=== PATIENT | female | born 1990 | race Caucasian/White ===

== ENCOUNTER 2018-04-26 01:12 | Emergency (ER) | payer MEDICAID ==
[~2018-04-26] VITALS: Ht 157.5 cm; Wt 64.9 kg
[~2018-04-26 01:12] MED LIST: HYDR-1421
[2018-04-26 02:32] LABS: Basophils # (auto) 0 uL; Basophils % (auto) 0.8 % (0.0-2.0); Eosinophils # (auto) 0.1 uL; Hematocrit 30.4 % (36.0-46.0); Hemoglobin 9.5 g/dL (12.2-16.2); Monocytes # (auto) 0.4 uL; White Blood Cell 5.3 10^3/uL (4.4-10.8)
[2018-04-26 02:34] LABS: Eosinophils % (auto) 1.5 % (0.0-7.0); Lymphocytes % (auto) 37.7 % (10.0-50.0); Mean Corpuscular Hemoglobin 21.7 pg (28.0-32.0); Mean Corpuscular Hgb Conc. 31.2 g/dL (32.0-36.0); Mean Corpuscular Volume 69.5 fL (80.0-100.0); Monocytes % (auto) 7.6 % (0.0-12.0); Neutrophils # (auto) 2.8 uL; Neutrophils % (auto) 52.4 % (37.0-80.0); Platelet Count (auto) 282 10^3/uL (140-450); Red Blood Cells 4.37 10^6/uL (4.0-5.20); Red Cell Distribution Width 18.1 % (11.8-14.3)
[2018-04-26 02:39] LABS: Albumin 3.4 g/dL (3.4-5.0); BUN/Creatinine Ratio 16.9; Calcium 8.3 mg/dL (8.5-10.1); Potassium 3.9 mmol/L (3.5-5.1)
[2018-04-26 02:41] LABS: Alcohol, Urine < 3.0 mg/dL (0-5); Amphetamine Screen, Urine POSITIVE (NEGATIVE); Barbiturate Scree,Urine NEGATIVE (NEGATIVE); Benzodiazephine Screen, Urine NEGATIVE (NEGATIVE); Cannabinoid Screen, Urine NEGATIVE (NEGATIVE); Cocaine Screen, Urine NEGATIVE (NEGATIVE); Opiate Scree,Urine POSITIVE (NEGATIVE); Phencyclidine Screen, Urine NEGATIVE (NEGATIVE)
[2018-04-26 02:42] LABS: Urine Bacteria MANY /hpf (None Seen); Urine Blood Negative /uL (Negative); Urine Mucus FEW (None Seen); Urine Specific Gravity 1.022 (1.001-1.035); Urine WBC 62 /hpf (0 - 5)
[2018-04-26 02:42] LABS: Bilirubin, Total 0.4 mg/dL (0.2-1.0); Total Protein 8.8 g/dL (6.4-8.2)
[2018-04-26] MEDS ORDERED: cefTRIAXone 1GM/50ML D5W 50 ML IV ONE ×2 (03:15→04:12)
[2018-04-26 05:25] VITALS: BP 98/58
[2018-04-27 04:06] LABS: RPR Non Reactive (Non Reactive)
== END 2018-04-26 06:36 | disposition home or self-care (01) ==
LOC: ER 01:17
DX: L03.116 Cellulitis of left lower limb (principal); L03.115 Cellulitis of right lower limb; L02.416 Cutaneous abscess of left lower limb; F12.10 Cannabis abuse, uncomplicated; F15.10 Other stimulant abuse, uncomplicated; F17.210 Nicotine dependence, cigarettes, uncomplicated; Z88.0 Allergy status to penicillin
CPT/HCPCS: 36415; 80053; 80307; 81001; 83605; 84702; 85025; 86592; 87040; 87491; 87591; 93005; 94761; 96365; 99284; J0696

== ENCOUNTER 2018-09-22 14:52 | Emergency (ER) | payer MEDICAID ==
[~2018-09-22] VITALS: Ht 167.6 cm; Wt 68.0 kg
[2018-09-22 16:41] LABS: Urine Pregnacy Test Negative (Negative)
[2018-09-22 16:46] LABS: Alcohol, Urine < 3.0 mg/dL (0-5); Amphetamine Screen, Urine POSITIVE (NEGATIVE); Barbiturate Scree,Urine NEGATIVE (NEGATIVE); Benzodiazephine Screen, Urine POSITIVE (NEGATIVE); Cannabinoid Screen, Urine NEGATIVE (NEGATIVE); Cocaine Screen, Urine NEGATIVE (NEGATIVE); Opiate Scree,Urine POSITIVE (NEGATIVE); Phencyclidine Screen, Urine NEGATIVE (NEGATIVE)
[2018-09-22 16:47] LABS: Basophils # (auto) 0 uL; Eosinophils # (auto) 0.1 uL; Monocytes # (auto) 0.3 uL; Monocytes % (auto) 8.3 % (0.0-12.0); Neutrophils # (auto) 2.1 uL
[2018-09-22 16:49] LABS: Basophils % (auto) 0.5 % (0.0-2.0); Eosinophils % (auto) 2.2 % (0.0-7.0); Lymphocytes # (auto) 1.6 uL; Lymphocytes % (auto) 37.4 % (10.0-50.0); Mean Corpuscular Hemoglobin 22.1 pg (28.0-32.0); Mean Corpuscular Hgb Conc. 31.4 g/dL (32.0-36.0); Mean Corpuscular Volume 70.6 fL (80.0-100.0); Neutrophils % (auto) 51.6 % (37.0-80.0); Nucleated Red Blood Cells % 0.1 %; Platelet Count (auto) 265 10^3/uL (140-450); Red Blood Cells 4.53 10^6/uL (4.0-5.20); Red Cell Distribution Width 16.3 % (11.8-14.3); White Blood Cell 4.2 10^3/uL (4.4-10.8)
[2018-09-22 16:49] LABS: Urine Bacteria FEW /hpf (None Seen); Urine Blood Negative /uL (Negative); Urine Mucus FEW (None Seen); Urine Specific Gravity 1.022 (1.001-1.035); Urine WBC 1 /hpf (0 - 5)
[2018-09-22 17:02] LABS: Alanine Aminotransferase 12 U/L (13-56); Albumin 3.4 g/dL (3.4-5.0); Anion Gap 11 (5-15); Aspartate Aminotransferase 13 U/L (15-37); Blood Alcohol < 3.0 mg/dL (0-5); Blood Urea Nitrogen 16 mg/dL (7-18); Calcium 8.5 mg/dL (8.5-10.1); Carbon Dioxide 24 mmol/L (21-32); Chloride 113 mmol/L (98-107); Glucose 111 mg/dL (74-106); Salicylate < 1.7 mg/dL (2.8-20.0); Sodium 148 mmol/L (136-145)
[2018-09-22 17:05] LABS: Acetaminophen < 2.0 ug/mL (10-30)
[2018-09-22 17:07] LABS: Alkaline Phosphatase 74 U/L (45-117); BUN/Creatinine Ratio 18.4; Bilirubin, Total 0.2 mg/dL (0.2-1.0); GFR African American 99 mL/min; GFR Non-African American 82 mL/min; Total Protein 8.4 g/dL (6.4-8.2)
[2018-09-22 22:01] VITALS: BP 116/51
== END 2018-09-23 01:38 | disposition left against medical advice (07) ==
LOC: ER 14:52 → EDBD 14:52 → ER 09-23 01:38
DX: G92 Toxic encephalopathy (principal); F15.10 Other stimulant abuse, uncomplicated; D50.9 Iron deficiency anemia, unspecified; R41.82 Altered mental status, unspecified; F19.10 Other psychoactive substance abuse, uncomplicated; F17.210 Nicotine dependence, cigarettes, uncomplicated; F14.10 Cocaine abuse, uncomplicated; F11.10 Opioid abuse, uncomplicated; F12.10 Cannabis abuse, uncomplicated; Z59.0 Homelessness; Z88.0 Allergy status to penicillin
CPT/HCPCS: 36415; 51702; 70450; 71045; 80053; 80307; 80320; 80329; 81001; 81025; 84484; 85025; 93005

== ENCOUNTER 2023-09-10 06:55 | Inpatient (IN) | payer MEDICAID ==
[~2023-09-10] VITALS: Ht 162.6 cm; Wt 63.5 kg
[2023-09-10] VITALS (18 sets, daily range): BP systolic 102–138; BP diastolic 58–92; PULSE 79–114; RESP 16–22; TEMP 98–99.1; O2SAT 96–99
[2023-09-10 08:12] LABS: Urine Bacteria MOD /hpf (None Seen); Urine Blood TRACE /uL (Negative); Urine Protein, UAD 1+ (Negative); Urine Specific Gravity 1.011 (1.001-1.035); Urine Urobilinogen 2 mg/dL (Negative); Urine WBC 342 /hpf (0 - 5); Urine WBC Clumps PRESENT /hpf (None Seen)
[2023-09-10 08:18] LABS: Protein, Urine 106.8 mg/dL (0.0-11.9)
[2023-09-10 08:19] LABS: Urine Clarity Cloudy (Clear); Urine Color Yellow (Yellow)
[2023-09-10 08:21] LABS: Amphetamine Screen, Urine Neg (NEGATIVE); Barbiturate Scree,Urine Neg (NEGATIVE); Benzodiazephine Screen, Urine Neg (NEGATIVE); Cannabinoid Screen, Urine Neg (NEGATIVE); Cocaine Screen, Urine Neg (NEGATIVE); Creatinine, Urine 78.34 mg/dL (30.0-125.0); Opiate Scree,Urine Neg (NEGATIVE); Phencyclidine Screen, Urine Neg (NEGATIVE); Urine Protein/Creatinine Ratio 1.36
[2023-09-10 08:34] LABS: White Blood Cell 16.4 10^3/uL (4.4-10.8)
[2023-09-10 08:36] LABS: Hematocrit 24.2 % (36.0-46.0); Hemoglobin 7.8 g/dL (12.2-16.2); Mean Corpuscular Hemoglobin 21.6 pg (28.0-32.0); Mean Corpuscular Volume 67.5 fL (80.0-100.0); Red Blood Cells 3.59 10^6/uL (4.0-5.20); Red Cell Distribution Width 18.1 % (11.8-14.3)
[2023-09-10 08:40] LABS: Basophils % (manual) 0 (0.0-2.0); Blast Cells 0; Eosinophils % (manual) 0 (0-7); Metamyelocytes % 0; Myelocytes % 0; Promyelocytes % 0; Reactive Lymphocytes 0
[2023-09-10 08:46] LABS: Prothrombin Time 10.6 sec (9.3-11.8)
[2023-09-10 09:02] LABS: Albumin 3.4 g/dL (3.2-4.8); Alkaline Phosphatase 134 U/L (46-116); Anion Gap 9 (5-15); Aspartate Aminotransferase 9 U/L (13-40); BUN/Creatinine Ratio 8.9 (10.0-20.0); Bilirubin, Total 0.7 mg/dL (0.2-1.0); Blood Urea Nitrogen 5 mg/dL (9-23); Calcium 8.8 mg/dL (8.7-10.4); Carbon Dioxide 19 mmol/L (20-30); Chloride 103 mmol/L (98-107); Glucose 115 mg/dL (74-106); Potassium 3.5 mmol/L (3.5-5.1); Sodium 131 mmol/L (136-145); Total Protein 6.2 g/dL (5.7-8.2); Uric Acid 3.6 mg/dL (3.1-7.8)
[2023-09-10 09:03] LABS: Alanine Aminotransferase < 9 U/L (7-40)
[2023-09-10 09:32] LABS: Band Neutrophils % (manual) 4; Lymphocytes % (manual) 6 (10.0-50.0); Monocytes % (manual) 8 (0-12)
[2023-09-10 09:33] LABS: Anisocytosis Slight; Hypochromia Slight; Platelet Estimate Adequate; Polychromasia Slight
[2023-09-10] MEDS: ONDANSETRON HCL 4 MG/2 ML VIAL IV PRN (09:55)
[2023-09-10 12:40] LABS: Basophils # (auto) 0.2 10 ^3/uL (0-0.2); Eosinophils # (auto) 0 10 ^3/uL (0-0.8); Hemoglobin 7.3 g/dL (12.2-16.2); Lymphocytes # (auto) 0.7 10 ^3/uL (0.4-5.4)
[2023-09-10 12:43] LABS: Basophils % (auto) 1.2 % (0.0-2.0); Hematocrit 22.8 % (36.0-46.0); Lymphocytes % (auto) 4.5 % (10.0-50.0); Mean Corpuscular Hemoglobin 21.6 pg (28.0-32.0); Mean Corpuscular Hgb Conc. 32.1 g/dL (32.0-36.0); Mean Corpuscular Volume 67.2 fL (80.0-100.0); Monocytes # (auto) 1.2 10 ^3/uL (0-1.3); Monocytes % (auto) 7.6 % (0.0-12.0); Neutrophils % (auto) 86.7 % (37.0-80.0); Red Blood Cells 3.39 10^6/uL (4.0-5.20); White Blood Cell 16.2 10^3/uL (4.4-10.8)
[2023-09-10] MEDS ORDERED: MORPHINE SULF PF 5 MG/10 ML VIAL ONE (12:55)
[2023-09-10] MEDS ORDERED: fentaNYL CITRATE 100 MCG/2 ML VL ONE (12:56)
[2023-09-10] MEDS ORDERED: MIDAZOLAM HCL 2MG/2ML 2ml VIAL (1mg/ml) ONE (12:56)
[2023-09-10] MEDS: ONDANSETRON HCL 4 MG/2 ML VIAL IV ONE (14:31)
[2023-09-10] MEDS: LACTATED RINGER'S 1,000 ML IV ONE ×2 (15:11)
[2023-09-10] MEDS: TERBUTALINE SULFATE 1 MG/ML 1ML VIAL SC SCH (15:11)
[2023-09-10] MEDS: LACTATED RINGER'S 1,000 ML IV SCH ×2 (15:11)
[2023-09-10] MEDS: ceFAZolin 2 GM/D5W50ml 50 ML IV ONE (15:12)
[2023-09-10] MEDS: ONDANSETRON HCL 4 MG/2 ML VIAL ONE (15:12)
[2023-09-10] MEDS: TETRACAINE 1% INJ 2 ML VIAL IJ ONE (15:12)
[2023-09-10] MEDS: ACETAMINOPHEN IV 1000 MG/100ML (10MG/ML) IV PRN (15:40)
[2023-09-10] MEDS: KETOROLAC TROMETH 30 MG/ML 1ML VIAL IV PRN (16:59)
[2023-09-10 20:36] LABS: Basophils # (auto) 0 10 ^3/uL (0-0.2); Basophils % (auto) 0.2 % (0.0-2.0); Eosinophils # (auto) 0 10 ^3/uL (0-0.8); Hematocrit 28.6 % (36.0-46.0); Hemoglobin 9.3 g/dL (12.2-16.2); Lymphocytes % (auto) 5.4 % (10.0-50.0); Mean Corpuscular Hemoglobin 22.9 pg (28.0-32.0); Mean Corpuscular Hgb Conc. 32.4 g/dL (32.0-36.0); Mean Corpuscular Volume 70.6 fL (80.0-100.0); Monocytes # (auto) 1.5 10 ^3/uL (0-1.3); Monocytes % (auto) 7.7 % (0.0-12.0); Neutrophils # (auto) 16.9 10 ^3/uL (1.6-8.6); Neutrophils % (auto) 86.7 % (37.0-80.0); Red Blood Cells 4.05 10^6/uL (4.0-5.20); White Blood Cell 19.5 10^3/uL (4.4-10.8)
[2023-09-10] MEDS: ceFAZolin 1GM/50ML 50 ML IV SCH (21:08)
[2023-09-11] VITALS (16 sets, daily range): BP systolic 90–127; BP diastolic 42–71; PULSE 68–98; RESP 16–20; TEMP 98–99.5; O2SAT 95–99
[2023-09-11 05:08] LABS: Rubella Antibodies, IgG 2.12 index (Immune >0.99)
[2023-09-11 06:13] LABS: Basophils # (auto) 0 10 ^3/uL (0-0.2); Eosinophils # (auto) 0 10 ^3/uL (0-0.8); Eosinophils % (auto) 0.1 % (0.0-7.0); Hematocrit 26.6 % (36.0-46.0); Hemoglobin 8.3 g/dL (12.2-16.2); Lymphocytes # (auto) 1.4 10 ^3/uL (0.4-5.4); Lymphocytes % (auto) 9.6 % (10.0-50.0); Mean Corpuscular Hemoglobin 22.4 pg (28.0-32.0); Mean Corpuscular Hgb Conc. 31.1 g/dL (32.0-36.0); Mean Corpuscular Volume 71.9 fL (80.0-100.0); Monocytes # (auto) 1.3 10 ^3/uL (0-1.3); Neutrophils # (auto) 11.9 10 ^3/uL (1.6-8.6); Neutrophils % (auto) 81.3 % (37.0-80.0); Nucleated Red Blood Cells % 0.1 %; White Blood Cell 14.6 10^3/uL (4.4-10.8)
[2023-09-11 06:34] LABS: Red Cell Distribution Width 20.5 % (11.8-14.3)
[2023-09-11 07:07] LABS: RPR Non Reactive (Non Reactive)
[2023-09-11 07:50] LABS: Albumin 2.8 g/dL (3.2-4.8); Alkaline Phosphatase 105 U/L (46-116); Anion Gap 4 (5-15); Aspartate Aminotransferase 16 U/L (13-40); BUN/Creatinine Ratio 10.4 (10.0-20.0); Bilirubin, Total 0.3 mg/dL (0.2-1.0); Blood Urea Nitrogen 7 mg/dL (9-23); Calcium 8.9 mg/dL (8.7-10.4); Carbon Dioxide 23 mmol/L (20-30); Chloride 105 mmol/L (98-107); Glucose 93 mg/dL (74-106); Potassium 4.1 mmol/L (3.5-5.1); Sodium 132 mmol/L (136-145); Total Protein 5.1 g/dL (5.7-8.2)
[2023-09-11 07:53] LABS: Alanine Aminotransferase < 9 U/L (7-40)
[2023-09-11] MEDS: SIMETHICONE 80 MG CHEWABLE TABLET PO SCH (17:44)
[2023-09-11] MEDS ORDERED: DOCU-265 PO (20:25)
[2023-09-11] MEDS ORDERED: HYDR-4902 PO (20:25)
[2023-09-11] MEDS ORDERED: IBUP-1455 PO (20:25)
[2023-09-11] MEDS: IBUPROFEN 800 MG TAB PO PRN (21:55)
[2023-09-11] MEDS: DOCUSATE SOD 100 MG CAP PO SCH (21:55)
[2023-09-12 02:57] VITALS: BP 101/55; PULSE 79; RESP 16; TEMP 98.4; O2SAT 96
[2023-09-12] MEDS: HYDROcodone-ACET 5/325MG TAB PO PRN ×2 (03:15→10:08)
[2023-09-12] MEDS ORDERED: MEASLES, MUMPS & RUBELLA VAC(MMRII) 0.5ML SC ONE (07:00)
[2023-09-12 07:30] VITALS: BP 103/52; PULSE 89; RESP 18; TEMP 98; O2SAT 96
[2023-09-12] MEDS: DOCUSATE CALCIUM 240 MG CAP PO SCH (10:08)
[2023-09-12 10:30] VITALS: BP 109/67; PULSE 93; RESP 18; TEMP 97.7; O2SAT 98
[2023-09-12 19:06] LABS: Treponema pallidum Ab (FTA-Ab) Non Reactive (Non Reactive)
== END 2023-09-12 11:25 | disposition left against medical advice (07) | DRG 540 ==
LOC: LDRP 06:55 → OBSVTOIN 08:27 → LDRP 15:00
PROVIDERS: ADMIT Obstetrics & Gynecology; ATTEND Obstetrics & Gynecology
PROC: 30233N1 Transfusion of Nonautologous Red Blood Cells into Peripheral Vein, Percutaneous Approach (ICD-10-PCS; 2023-09-10)
PROC: 10D00Z1 Extraction of Products of Conception, Low, Open Approach (ICD-10-PCS; principal; 2023-09-10 13:03)
DX: O99.02 Anemia complicating childbirth (principal); O99.324 Drug use complicating childbirth; O34.211 Maternal care for low transverse scar from previous cesarean delivery; F11.13 Opioid abuse with withdrawal; D64.9 Anemia, unspecified; Z53.29 Procedure and treatment not carried out because of patient's decision for other reasons; Z37.0 Single live birth; Z3A.39 39 weeks gestation of pregnancy; Z88.0 Allergy status to penicillin; Z79.891 Long term (current) use of opiate analgesic; Z79.899 Other long term (current) drug therapy
CPT/HCPCS: 36415; 36430; 59025; 76805; 80053; 80307; 81001; 81002; 82570; 84156; 84550; 85007; 85025; 85027; 85610; 85730; 86592; 86703; 86762; 86803; 86850; 86900; 86901; 86920; 87340; 94760; 94762; 96360; 96361; 96365; 96366; 96374; G0378; J0131; J1885; J2250; J2405